=== PATIENT | male | born 1995 | race African-American/Black ===

== ENCOUNTER 2022-05-05 11:14 | Emergency (ER) | payer OTHER ==
[~2022-05-05] VITALS: Ht 172.7 cm; Wt 82.0 kg
[2022-05-05 11:19] VITALS: BP 140/42
[2022-05-05] MEDS ORDERED: ACETAMINOPHEN 325MG TABLET PO ONE (12:15)
== END 2022-05-05 13:38 ==
LOC: ER 11:26
DX: R68.89 Other general symptoms and signs (principal)
CPT/HCPCS: 99283; Z7610